=== PATIENT | female | born 1950 | race African-American/Black ===

== ENCOUNTER 2016-09-20 09:22 | Day surgery (SDC) | payer OTHER ==
[2016-09-19 13:40] VITALS: BMI 28.6
[2016-09-20] MEDS ORDERED: LIDOCAINE HCL/PF 2% SDV 5ML VIAL ONE (09:38)
[2016-09-20] MEDS ORDERED: PROPOFOL 20 ML ONE ×2 (09:38)
[2016-09-20 10:40] VITALS: TEMP 97.8
[2016-09-20 11:58] VITALS: BP 148/82; PULSE 52
--- NOTE | 2016-09-23 12:38 | PATH ---
Surgical Pathology Report Patient Name: FELIZ BARILLAS [facility]. Rec. #: [id number] /Age/Gender: 1950 (Age: 65) / F Account: [id number] Location: U-ENDOSCOPY Taken: 09/20/2016 Received: 09/20/2016 Reported: 09/23/2016 Physicians: Debora Nash M.D. Specimen(s) Received A: BX CECAL POLYPS B: BX HEPATIC FLEXURE Clinical History Adenoma surveillance Colon polyps Final Diagnosis A. COLON, CECUM, BIOPSY: COLONIC MUCOSA WITH HYPERPLASIA OF MUCOSA ASSOCIATED LYMPHOID TISSUE. NO ADENOMATOUS CHANGE IDENTIFIED. B. COLON, HEPATIC FLEXURE, BIOPSY: COLONIC MUCOSA WITH HYPERPLASIA OF MUCOSA ASSOCIATED LYMPHOID TISSUE. NO ADENOMATOUS CHANGE IDENTIFIED. Comment: The findings may indicate some form of antigenic stimulation to the GI tract. Electronically Signed Deangelo Saunders M.D. Gross Description A. Received in formalin, labeled "biopsy cecal polyps" are 4 suarez, irregular portions of soft tissue ranging from 0.1-0.4 cm. in greatest dimension. The specimens are submitted in toto in one cassette. B. Received in formalin, labeled "biopsy polyp hepatic flexure" are 4 suarez, irregular portions of soft tissue ranging from 0.3-0.4 cm. in greatest dimension. The specimens are submitted in toto in one cassette. 09/20/201609/20/2016
== END 2016-09-20 12:10 | disposition home or self-care (01) ==
LOC: JASU-ENDO 09:22
PROVIDERS: ATTEND Internal Medicine Gastroenterology
PROC: 0DBH8ZX Excision of Cecum, Via Natural or Artificial Opening Endoscopic, Diagnostic (ICD-10-PCS; 2016-09-20)
PROC: 0DBK8ZX Excision of Ascending Colon, Via Natural or Artificial Opening Endoscopic, Diagnostic (ICD-10-PCS; principal; 2016-09-20 10:00)
DX: Z86.010 Personal history of colon polyps (principal); D12.0 Benign neoplasm of cecum; D12.2 Benign neoplasm of ascending colon; K64.8 Other hemorrhoids
CPT/HCPCS: 88305-TC